=== PATIENT | female | born 1955 | race Caucasian/White ===

== ENCOUNTER 2021-09-27 10:40 | Outpatient (CLI) | payer MEDICARE | END 2021-09-27 10:41 | disposition home or self-care (01) | LOC: CSHLAB 10:40 | PROVIDERS: ATTEND Internal Medicine Pulmonary Disease | DX: Z20.822 Contact with and (suspected) exposure to COVID-19 (principal) | CPT/HCPCS: 87811 ==

== ENCOUNTER 2021-10-02 13:43 | Outpatient (CLI) | payer MEDICARE ==
[~2021-10-02 13:43] MED LIST: Iopamidol 370 76% 100 ML VIAL ONE
== END 2021-10-02 13:44 | disposition home or self-care (01) ==
LOC: CSHCT 13:43
PROVIDERS: ATTEND Internal Medicine Pulmonary Disease
DX: I26.99 Other pulmonary embolism without acute cor pulmonale (principal); J44.9 Chronic obstructive pulmonary disease, unspecified; R91.8 Other nonspecific abnormal finding of lung field
CPT/HCPCS: 71275; 82565; 94060; 94726; 94729; 94760; Q9967

== ENCOUNTER 2022-04-03 10:15 | Outpatient (CLI) | payer MEDICARE | END 2022-04-03 10:16 | disposition home or self-care (01) | LOC: CSHMRI 10:15 | PROVIDERS: ATTEND Neurological Surgery | DX: M47.12 Other spondylosis with myelopathy, cervical region (principal); M54.16 Radiculopathy, lumbar region; R15.9 Full incontinence of feces; R32 Unspecified urinary incontinence; M47.816 Spondylosis without myelopathy or radiculopathy, lumbar region; M51.36 Other intervertebral disc degeneration, lumbar region; M48.061 Spinal stenosis, lumbar region without neurogenic claudication | CPT/HCPCS: 72146; 72148 ==